=== PATIENT | male | born 1995 | race Caucasian/White ===

== ENCOUNTER 2017-10-21 19:44 | Emergency (ER) | payer OTHER ==
[2017-10-21] MEDS ORDERED: Ketorolac Tromethamine 60 MG/2 ML VIAL ONE (19:58)
--- NOTE | 2017-10-21 20:36 | RAD ---
RIGHT SHOULDER THREE VIEWS: 10/21/2017 HISTORY: Fall from a horse. COMPARISON: None. FINDINGS: The clavicular head is elevated with respect to the acromion. In addition, the coracoclavicular inte rspace is widened. No evidence for fracture. No evidence for glenohumeral joint dislocation. IMPRESSION: Widening of the right acromioclavicular and coracoclavicular interspace, evidence of a grade 3 acromi oclavicular joint injury. Orthopedic follow-up consultation advised. POS: [facility]AC[facility]
== END 2017-10-21 21:12 | disposition home or self-care (01) ==
LOC: SCSER 19:44
DX: S43.101A Unspecified dislocation of right acromioclavicular joint, initial encounter (principal); K21.9 Gastro-esophageal reflux disease without esophagitis; J45.909 Unspecified asthma, uncomplicated; Z79.899 Other long term (current) drug therapy; V80.010A Animal-rider injured by fall from or being thrown from horse in noncollision accident, initial encounter
CPT/HCPCS: 96372; J1885